=== PATIENT | male | born 2000 | race Caucasian/White ===

== ENCOUNTER 2023-10-12 14:44 | Emergency (ER) | payer OTHER, SELFPAY ==
--- NOTE | 2023-10-12 15:04 | ED.FEVER ---
HPI - Fever <Bre Najera PA-C - Last Filed: 10/12/23 19:43> General Chief Complaint: Upper Respiratory Symptoms Stated Complaint: Body aches, headache, sore throat Time Seen by Provider: 10/12/23 15:04 History of Present Illness HPI Narrative: Patient is a 23-year-old male presenting for evaluation of body aches, sinus pressure, and sore throat since yesterday. He reports recent exposure to flu a and B. He denies any vomiting but reports 1 episode yesterday of right-sided abdominal pain which has resolved since yesterday. He states that he is not had a bowel movement in 5 days since he has been traveling. He reports a small amount of cough and denies any shortness of breath. He notes previous tonsillectomy. He denies taking Tylenol or ibuprofen today and would like some Tylenol. Related Data Allergies Allergy/AdvReac Type Severity Reaction Status Date / Time No Known Drug Allergies Allergy Verified 10/12/23 15:15 Review of Systems <Bre Najera PA-C - Last Filed: 10/12/23 19:43> Review of Systems Narrative: See HPI Exam <Bre Najera PA-C - Last Filed: 10/12/23 19:43> Narrative Exam Narrative: GENERAL: 23 year old patient appears stated age. Well-developed patient, in no acute distress. HEAD: Atraumatic. Normocephalic. EYES: Pupils equal round and reactive. Extraocular motions intact. No scleral icterus. No injection or drainage. ENT: Nose with rhinorrhea. Nasal mucosa edematous with erythema. Nares are without bleeding or purulent drainage. Throat without erythema or exudates, no tonsils present bilaterally. Airway patent. TM visualized bilaterally with good cone of light, canals clear bilaterally. Pinna, tragus are non tender to palpation. NECK: Trachea midline. Non tender, No cervical lymphadenopathy CARDIOVASCULAR: Regular rate and rhythm without murmurs, gallops, or rubs. RESPIRATORY: Clear to auscultation. Breath sounds equal bilaterally. No wheezes, rales, or rhonchi. GASTROINTESTINAL: Abdomen soft, non-tender, nondistended. NEURO: AOx3. SKIN: No rash or erythema of visible areas Initial Vital Signs Initial Vital Signs: Vital Signs Temperature 98.2 F 10/12/23 15:05 Pulse Rate 68 10/12/23 15:05 Respiratory Rate 16 10/12/23 15:05 Blood Pressure 122/60 10/12/23 15:05 Pulse Oximetry 98 10/12/23 15:05 Oxygen Delivery Method Room Air 10/12/23 15:05 <Chavez Edwards DO - Last Filed: 10/14/23 17:59> Initial Vital Signs Initial Vital Signs: Vital Signs Temperature 98.2 F 10/12/23 15:05 Pulse Rate 68 10/12/23 15:05 Respiratory Rate 16 10/12/23 15:05 Blood Pressure 122/60 10/12/23 15:05 Pulse Oximetry 98 10/12/23 15:05 Oxygen Delivery Method Room Air 10/12/23 15:05 Course <Bre Najera PA-C - Last Filed: 10/12/23 19:43> Orders Ordered: Discontinued Medications Acetaminophen (Acetaminophen 325 Mg Tablet) 650 mg PO Q4H PRN PRN Reason: Fever/Mild Pain (1-3) Last Admin: 10/12/23 15:15 Dose: 650 mg Documented By: KF Vital Signs Vital signs: Vital Signs - 8 hr 10/12/23 15:05 10/12/23 16:28 Temperature 98.2 F Pulse Rate 68 66 Respiratory Rate 16 20 Blood Pressure 122/60 115/57 L Pulse Oximetry 98 100 Oxygen Delivery Method Room Air Room Air <Chavez Edwards DO - Last Filed: 10/14/23 17:59> Orders Ordered: Discontinued Medications Acetaminophen (Acetaminophen 325 Mg Tablet) 650 mg PO Q4H PRN PRN Reason: Fever/Mild Pain (1-3) Last Admin: 10/12/23 15:15 Dose: 650 mg Documented By: KF Vital Signs Vital signs: Vital Signs - 8 hr 10/12/23 15:05 10/12/23 16:28 Temperature 98.2 F Pulse Rate 68 66 Respiratory Rate 16 20 Blood Pressure 122/60 115/57 L Pulse Oximetry 98 100 Oxygen Delivery Method Room Air Room Air MDM - Fever <Bre Najera PA-C - Last Filed: 10/12/23 19:43> Lab Data Labs: Lab Results 10/12/23 Range/Units 15:00 SARS-CoV-2 (PCR) Negative (Negative) Influenza A (RT-PCR) Flu a negative (NEGATIVE) Influenza B (RT-PCR) Flu b negative (NEGATIVE) RSV (PCR) Negative (Negative) MDM Narrative Medical decision making narrative: Patient is a 23-year-old male presenting for evaluation of fever body aches and chills x1 day with previous flu exposure. Symptoms are consistent with a viral upper respiratory infection. Results of COVID flu and RSV testing were negative. He also reports 5 days without a bowel movement. He states this is normal for when he travels which he has been doing. Discussed with patient it seems possible his transient right lower quadrant pain may have been due to his constipation. No further workup needed since it is not present today and was transient in nature. However, advised him to returned for follow up in the ER if he should develop return of abdominal pain and worsening symptoms. Otherwise, recommend supportive care treatment at home to include increase fluids rest ibuprofen and Tylenol as needed Multiple etiologies for patient's symptoms considered including, but not limited to: Flu, COVID, RSV, appendicitis, constipation. Patient's symptoms improved over duration of stay with above-stated therapies. Findings and discharge diagnosis discussed with patient/family followed by verbalization of understanding Return precautions discussed with patient/family whom verbalize understanding of diagnosis and plan <Chavez Edwards, DO - Last Filed: 10/14/23 17:59> Lab Data Labs: Lab Results 10/12/23 Range/Units 15:00 SARS-CoV-2 (PCR) Negative (Negative) Influenza A (RT-PCR) Flu a negative (NEGATIVE) Influenza B (RT-PCR) Flu b negative (NEGATIVE) RSV (PCR) Negative (Negative) Discharge Plan Departure Patient Disposition: Home Clinical Impression: Upper respiratory infection Qualifiers: URI type: unspecified viral URI Qualified Code(s): J06.9 - Acute upper respiratory infection, unspecified Activity Restrictions/Additional Instructions: Thank you for coming in today for your care. You were diagnosed with an upper respiratory infection due to a viral illness. Recommend treatment of your body aches with increased fluid, Tylenol ibuprofen as needed and emphasize rest. Saltwater gargles may also give you some relief in your throat discomfort. You tested negative for COVID, flu and RSV. Please return to the emergency department for further evaluation if you should develop severe abdominal pain, difficulty breathing or other concerning signs or symptoms. It was a pleasure meeting you today. Referrals: Provider,Mira DARNELL [Primary Care Provider] - Stand Alone Forms: Patient Portal/API ED Sign-out <Chavez Edwards DO - Last Filed: 10/14/23 17:59> Cosign ED Attending Cosignature Attestation: Dr Edwards Co-Sign Statement: I was available for consultation during this patient's emergency department visit. This chart is signed by myself for administrative purposes only. I did not have direct contact with this patient during this visit. They were seen independently by the APC.
[2023-10-12 15:05] VITALS: BP 122/60; PULSE 68; RESP 16; TEMP 36.8; O2SAT 98; BMI 22.9
[2023-10-12] MEDS: ACETAMINOPHEN 325 MG TABLET 650 MG PO (15:15)
[2023-10-12 15:50] LABS: Influenza A - CEPHEID Flu A NEGATIVE (NEGATIVE); Influenza B - CEPHEID Flu B NEGATIVE (NEGATIVE); Respiratory Syncytial Virus Negative (Negative)
[2023-10-12 16:15] LABS: COVID-19 CEPHEID 4-PLEX PCR Negative (Negative)
[2023-10-12 16:28] VITALS: BP 115/57; PULSE 66; RESP 20; O2SAT 100
== END 2023-10-12 16:58 | disposition home or self-care (01) ==
PROVIDERS: Emergency Provider Physician Assistant
DX: J06.9 Acute upper respiratory infection, unspecified (principal)
CPT/HCPCS: 0241U; 99283